=== PATIENT | female | born 1945 | race Caucasian/White ===

== ENCOUNTER 2024-10-14 18:22 | Emergency (ER) | payer OTHER ==
[~2024-10-14] VITALS: Ht 149.9 cm; Wt 57.2 kg
== END 2024-10-14 22:19 | disposition home or self-care (01) ==
LOC: ER 18:25
DX: S00.93XA Contusion of unspecified part of head, initial encounter (principal); W18.39XA Other fall on same level, initial encounter; Y93.89 Activity, other specified; Y92.89 Other specified places as the place of occurrence of the external cause; Y99.9 Unspecified external cause status